=== PATIENT | male | born 1995 | race African-American/Black ===

== ENCOUNTER 2017-07-12 15:24 | Emergency (ER) | payer MEDICAID ==
[~2017-07-12] VITALS: Ht 172.7 cm; Wt 66.0 kg
[2017-07-12] MEDS ORDERED: IPRATROPIUM BROMIDE (0.02%) 0.5MG/2.5ML NEB HHN STA (17:31)
[2017-07-12] MEDS ORDERED: PREDNISONE 20MG TABLET PO STA (17:31)
[2017-07-12] MEDS ORDERED: ALBUTEROL (0.083%) 2.5MG/3ML NEB HHN STA (17:31)
[2017-07-12 18:03] VITALS: BP 127/62
== END 2017-07-12 18:15 | disposition home or self-care (01) ==
LOC: ER 16:55
DX: J45.901 Unspecified asthma with (acute) exacerbation (principal); F12.10 Cannabis abuse, uncomplicated
CPT/HCPCS: 94640; 99283; J7611; Z7610; J7512

== ENCOUNTER 2017-11-26 16:52 | Emergency (ER) | payer MEDICAID ==
[~2017-11-26] VITALS: Ht 177.8 cm; Wt 66.0 kg
[2017-11-26] MEDS ORDERED: ALBUTEROL (0.083%) 2.5MG/3ML NEB HHN STA (18:01)
[2017-11-26] MEDS ORDERED: IPRATROPIUM BROMIDE (0.02%) 0.5MG/2.5ML NEB HHN STA (18:01)
[2017-11-26] MEDS ORDERED: PREDNISONE 20MG TABLET PO STA (18:01)
[2017-11-26 19:08] VITALS: BP 112/57
== END 2017-11-26 19:11 | disposition home or self-care (01) ==
LOC: ER 18:14
DX: J45.901 Unspecified asthma with (acute) exacerbation (principal); F12.10 Cannabis abuse, uncomplicated
CPT/HCPCS: 94640; 99283; J7512; J7611; Z7610

== ENCOUNTER 2019-07-23 11:54 | Emergency (ER) | payer MEDICAID ==
[~2019-07-23] VITALS: Ht 172.7 cm; Wt 75.0 kg
[2019-07-23 12:11] VITALS: BP 132/73
[2019-07-23] MEDS ORDERED: IPRATROPIUM/ALBUTEROL 0.5-3(2.5)MG/3ML NEB HHN ONE (12:30)
== END 2019-07-23 14:33 | disposition home or self-care (01) ==
LOC: ER 11:54
DX: J45.909 Unspecified asthma, uncomplicated (principal); J02.9 Acute pharyngitis, unspecified
CPT/HCPCS: 94640; 99283; J7620; Z7610